=== PATIENT | male | born 1980 | race Caucasian/White ===

== ENCOUNTER 2021-09-26 20:22 | Emergency (ER) | payer OTHER ==
[~2021-09-26] VITALS: Ht 167.6 cm; Wt 85.0 kg
[2021-09-26 20:28] VITALS: BP 146/100
[2021-09-26 21:05] LABS: HEMATOCRIT 48.9 % (39.0-50.0); HEMOGLOBIN 16.7 g/dl (14.0-18.0); IMMATURE GRANULOCYTES 0.6 % (0.0-5.0); MEAN CELL VOLUME 88.9 fL CALC (80.0-100.0); MEAN CORPUSCULAR HGB 30.4 pG CALC (26.0-32.0); MEAN CORPUSCULAR HGB CONC 34.2 g/dL CAL (32.0-36.0); NEUT# 9.58 thou/uL (1.82-7.42); RED BLOOD COUNT 5.5 mill/uL (4.70-6.10)
[2021-09-26 21:21] LABS: ALKALINE PHOSPHATASE 78 u/l (38-126); BILIRUBIN, TOTAL 0.7 mg/dL (0.0-1.4); BUN 12 mg/dL (9-20); BUN/CREATININE RATIO 9 (12-20 (CALC)); CHLORIDE 103 mmol/l (95-108); CREATININE 1.4 mg/dL (0.7-1.3); GFR 56 ML/MIN (>=60 (CALC)); GFR FOR AFR.AMER. > 60 ML/MIN (>=60 (CALC)); LIPASE 92 u/l (23-300); POTASSIUM 4.1 mmol/l (3.5-5.1); SGOT/AST 26 u/l (17-59); SODIUM 142 mmol/l (137-146)
[2021-09-26 21:23] LABS: ALBUMIN 4.6 g/dL (3.2-5.0); ANION GAP 13 (6-22 (CALC)); CARBON DIOXIDE 30 mmol/l (22-30); TOTAL PROTEIN 8.2 g/dL (6.3-8.2)
[2021-09-26] MEDS ORDERED: ZOFRAN4 MG/TAB PO (21:35)
[2021-09-26 21:44] VITALS: BP 146/100
== END 2021-09-26 21:51 | disposition home or self-care (01) | DRG 392 ==
LOC: ED 20:22
PROVIDERS: Emergency Medicine
DX: R11.10 Vomiting, unspecified (principal); R79.89 Other specified abnormal findings of blood chemistry

== ENCOUNTER 2023-12-22 21:23 | Emergency (ER) | payer OTHER ==
[~2023-12-22] VITALS: Ht 167.6 cm; Wt 89.0 kg
[~2023-12-22 21:23] MED LIST: ZOFRAN4 MG/TAB PO
[2023-12-22] MEDS ORDERED: IBUPROFEN 800 MG/TAB PO ONE (21:50)
[2023-12-22 23:58] VITALS: BP 128/70
== END 2023-12-22 23:59 | disposition home or self-care (01) | DRG 563 ==
LOC: ED 21:23
DX: S93.602A Unspecified sprain of left foot, initial encounter (principal); X50.0XXA Overexertion from strenuous movement or load, initial encounter